=== PATIENT | female | born 1975 | race Caucasian/White ===

== ENCOUNTER 2016-06-10 18:12 | Emergency (ER) | payer BC ==
[~2016-06-10] VITALS: Ht 157.5 cm; Wt 79.0 kg
[2016-06-10 21:21] VITALS: BP 128/90
== END 2016-06-10 21:22 | disposition home or self-care (01) ==
LOC: ED 20:10
DX: F41.1 Generalized anxiety disorder (principal); E89.0 Postprocedural hypothyroidism
CPT/HCPCS: 36415; 84439; 84443; 99284